=== PATIENT | female | born 1990 | race Caucasian/White ===

== ENCOUNTER 2016-12-26 19:19 | Emergency (ER) | payer OTHER ==
[2016-12-26 19:32] VITALS: BP 115/65; PULSE 60; RESP 16; TEMP 98.2; O2SAT 97
--- NOTE | 2016-12-26 19:32 | EDPHY ---
H & P Stated Complaint: R shoulder injury HPI/ROS: HPI CHIEF COMPLAINT: Right shoulder pain HISTORY OF PRESENT ILLNESS: This patient 26-year-old female otherwise healthy no significant medical history, presents emergency room with right shoulder pain. Patient was jumping over a wall. Developed right shoulder pain she feels as if her shoulder went in out. She presents emergency room for evaluation. She has full range of motion. She is neurovascular intact. Good distal pulses. Good cap refill. No weakness. No direct trauma. No obvious deformity. She is training for were old [employer] competition. She is very concerned that she may have injured her right shoulder. Past Medical History: No significant medical history Past Surgical History: No significant surgical history Social History: Denies daily use of drugs alcohol tobacco products. Family History: Noncontributory ROS REVIEW OF SYSTEMS: A comprehensive 10 point review of systems is otherwise negative aside from elements mentioned in the history of present illness. Exam Constitutional triage nursing summary reviewed, vital signs reviewed, awake/ alert. Eyes normal conjunctivae and sclera, EOMI, PERRLA. HENT normal inspection, atraumatic, moist mucus membranes, no epistaxis, neck supple/ no meningismus, no raccoon eyes. Respiratory clear to auscultation bilaterally, normal breath sounds, no respiratory distress, no wheezing. Cardiovascular rate normal, regular rhythm, no murmur, no edema, distal pulses normal. Gastrointestinal soft, non-tender, no rebound, no guarding, normal bowel sounds, no distension, no pulsatile mass. Genitourinary no CVA tenderness. Musculoskeletal right shoulder: Axillary nerve intact, right arm distally neurovascular intact. Good radial pulse. Good cap refill. Good purchasing clerk strength. Full range of motion. No clicking. No evidence of rotator cuff injury on exam. no midline vertebral tenderness, full range of motion, no calf swelling, no tenderness of extremities, no meningismus, good pulses, neurovascularly intact. Skin pink, warm, & dry, no rash, skin atraumatic. Neurologic awake, alert and oriented x 3, AAOx3, moves all 4 extremities equally, motor intact, sensory intact, CN II-XII intact, normal cerebellar, normal vision, normal speech. Psychiatric normal mood/affect. Heme/Lymph/Immune no lymphadenopathy. Differential Diagnosis: Includes but is not limited to in a particular order, musculoskeletal strain, rotator cuff injury, dislocation relocation, bony abnormality Medical Decision Making: Plan for this patient x-ray right shoulder. If x-ray is unremarkable recommend orthopedic follow-up. Will refer her. Recommend ice, rest for right shoulder. Anti-inflammatory pain medicine. Re-evaluation: ED x-ray: Right shoulder: Negative for acute malalignment or fracture. Image interpreted by myself. Recommend referral to Orthopedics. Ice, anti- inflammatories. She understands. Source: Patient - Personal History LMP (Females 10-55): Now Current Tetanus/Diphtheria Vaccine: Yes Current Tetanus Diphtheria and Acellular Pertussis (TDAP): Yes - Medical/Surgical History Hx Asthma: No Hx Chronic Respiratory Disease: No Hx Diabetes: No Hx Cardiac Disease: No Hx Renal Disease: No Hx Cirrhosis: No Hx Alcoholism: No Hx HIV/AIDS: No Hx Splenectomy or Spleen Trauma: No Other PMH: denies - Social History Smoking Status: Never smoked Constitutional: Initial Vital Signs Temperature (C) 36.8 C 12/26/16 19:28 Heart Rate 60 12/26/16 19:28 Respiratory Rate 16 12/26/16 19:28 Blood Pressure 115/65 12/26/16 19:28 O2 Sat (%) 97 12/26/16 19:28 O2 Delivery Mode Room Air Allergies/Adverse Reactions: Penicillins Allergy (Verified 12/26/16 19:28) Home Medications: Medication Instructions Recorded NK [No Known Home Meds] 12/26/16 Medical Decision Making - Diagnostics Imaging Results: Imaging Impressions Shoulder X-Ray 12/26/16 19:38 Impression: Normal Right shoulder series. Departure - Departure Disposition: Home, Routine, Self-Care Clinical Impression: Strain of shoulder, right Qualifiers: Encounter type: initial encounter Qualified Code(s): S46.911A - Strain of unspecified muscle, fascia and tendon at shoulder and upper arm level, right arm , initial encounter Condition: Good Instructions: Rotator Cuff Injury (ED) Additional Instructions: 1. Recommend resting your shoulder. 2. Ice for pain control. 3. Take anti-inflammatory pain medicine as needed. 4. Follow up with Orthopedics. Referrals: Ting Grullon MD [Primary Care Provider] - As per Instructions Alex Bryant MD [Medical Doctor] - As per Instructions
== END 2016-12-26 20:16 | disposition home or self-care (01) ==
DX: S46.911A Strain of unspecified muscle, fascia and tendon at shoulder and upper arm level, right arm, initial encounter (principal); X58.XXXA Exposure to other specified factors, initial encounter; Y99.8 Other external cause status; Y93.39 Activity, other involving climbing, rappelling and jumping off